=== PATIENT | male | born 1955 | race Caucasian/White ===

== ENCOUNTER 2016-05-02 00:36 | Emergency (ER) | payer MEDICARE ==
--- NOTE | 2016-05-02 06:52 | ER ---
ADMIT: 05/02/2016 RM/LOC: ER [facility] MR#: [id number] [facility] [facility] [place], [place] [id number] LIVIAMAX BURTON Young [address] [place] [address] Emergency Room Report SEX: M AGE: 60 : 1955 DATE: 05/02/2016 The patient is a 60-year-old male with COPD, smoking abuse, and occasional amphetamine abuse, comes in with acute onset respiratory distress, chest tightness tonight. Exam remarkable for decreased breath sounds. Hypertensive emergency of 225/135. Chest x-ray shows no pulmonary edema. EKG shows sinus rhythm with minimal ST depression. Normal troponin, BN peptide. Responded well to nitro-morphine, Lasix, DuoNeb aerosol, Solu-Medrol, magnesium. Tox screen positive for amphetamine and benzodiazepine. Discharged with albuterol MDI p.r.n., prednisone 60 mg daily x5 days. Doxycycline 100 mg b.i.d. x7 days. Discontinue drug abuse and smoking. Follow up Dr. Pollard as needed. Thomas Ballesteros MD/ leslye JOB #: [id number] CC: Thomas Ballesteros MD, Attending Physician
== END 2016-05-02 02:56 | disposition home or self-care (01) ==
LOC: ER 00:36
DX: J44.9 Chronic obstructive pulmonary disease, unspecified (principal); F19.10 Other psychoactive substance abuse, uncomplicated; I10 Essential (primary) hypertension; F17.210 Nicotine dependence, cigarettes, uncomplicated; Z86.19 Personal history of other infectious and parasitic diseases; Z79.899 Other long term (current) drug therapy

== ENCOUNTER 2016-05-19 02:39 | Emergency (ER) | payer MEDICARE ==
--- NOTE | 2016-05-24 07:42 | ER ---
ADMIT: 05/19/2016 RM/LOC: ER [facility] MR#: [id number] [facility] [id number] [place], [place] [address] LIVIAMAX BURTON Young [address] [place] [address] Emergency Room Report SEX: M AGE: 60 : 1955 DATE: 05/19/2016 TIME: 0239 hours. Please refer to my T-sheet for complete H and P. HISTORY OF PRESENT ILLNESS: Briefly, the patient is a 60-year-old, comes in with a cough, sore throat, it has been going on for several days. He continues to smoke about a pack a day. He was on steroids, not long ago and said it really improved, but he has been off it for a while and still smoking. He comes back in saying he is not improving. PHYSICAL EXAMINATION: VITAL SIGNS: Blood pressure is 187/109, pulse 86, respirations 22, temp 98.4, saturation 96%. GENERAL: No acute distress. HEENT: Grossly normal except an erythematous pharynx. LUNGS: Coarse with expiratory wheezes. SKIN: No rash. EMERGENCY DEPARTMENT COURSE: I gave him prednisone 40 mg p.o., albuterol 2 puffs p.o., Zithromax 500 mg p.o. He is ready for discharge. ASSESSMENT: 1. Acute pharyngitis. 2. Bronchitis. 3. Chronic obstructive pulmonary disease exacerbation. PLAN: Stop smoking. Z-Tian. Prednisone 40 mg, 30 mg, 20 mg, 10 mg, two days each. Return if worse. Follow up with Dr. Bell. Goldy Bradford MD/ leslye JOB #: [id number] CC: Goldy Bradford MD, Attending Physician
== END 2016-05-19 03:23 | disposition home or self-care (01) ==
LOC: ER 02:39
DX: J44.1 Chronic obstructive pulmonary disease with (acute) exacerbation (principal); F17.210 Nicotine dependence, cigarettes, uncomplicated; Z79.51 Long term (current) use of inhaled steroids